=== PATIENT | female | born 1940 | race Caucasian/White ===

== ENCOUNTER → 2018-08-01 15:45 | Outpatient (CLI) | payer OTHER, SELFPAY ==
[2018-08-01 16:39] LABS: Add Manual Diff / Slide Review NO; Basophils Percent Auto 0.9 % (0-2); Hematocrit 38.7 % (36-46); Hemoglobin 13.5 g/dL (12.0-16.0); Lymphocytes Percent Auto 31.3 % (25-40); Mean Corpuscular HGB Conc 34.8 % (30-36); Mean Corpuscular Hemoglobin 31.5 PG (26-34); Mean Corpuscular Volume 90.7 fL (80-100); Monocytes Percent Auto 6.4 % (3-14); Neutrophils Absolute Auto 3500 /uL (1500-7000); Neutrophils Percent Auto 59.4 % (50-75); Platelet Count 215 X10^3/uL (150-400); Red Blood Cell Count 4.27 X10^6/uL (4.0-5.2); Red Cell Distribution Width 13.2 % (11.6-14.8)
[2018-08-01 17:02] LABS: Alanine Aminotransferase 41 IU/L (9-52); Albumin 4.5 g/dL (3.5-5.0); Alkaline Phosphatase 118 U/L (38-126); Aspartate Aminotransferase 29 IU/L (14-36); Bilirubin Total 0.8 mg/dL (0.2-1.3); Blood Urea Nitrogen 9 mg/dL (7-17); Calcium 10.3 mg/dL (8.4-10.2); Carbon Dioxide 28 mmol/L (22-32); Chloride 102 mmol/L (98-107); Cholesterol 227 mg/dL (140-199); Estimated Glomerular Filt Rate > 60.0 mL/min (>60); Globulin 2.3 g/dL (1.7-4.1); Glucose 118 mg/dL (80-110); HDL Cholesterol 49 mg/dL (40-60); HEMOLYSIS < 15 (0-50); LDL Cholesterol Calculated 133 mg/dL (<100); Potassium 3.7 mmol/L (3.4-5.1); Sodium 143 mmol/L (137-145); Total Protein 6.8 g/dL (6.3-8.2); Triglycerides 226 mg/dL (35-150)
[2018-08-01 17:30] LABS: Thyroid Stimulating Hormone 0.97 uIU/mL (0.47-4.68)
== END ==
PROVIDERS: Family Provider Family Medicine; PCP Family Medicine; Visit Provider Family Medicine
DX: E78.5 Hyperlipidemia, unspecified (principal); R94.5 Abnormal results of liver function studies; Z13.0 Encounter for screening for diseases of the blood and blood-forming organs and certain disorders involving the immune mechanism; Z13.29 Encounter for screening for other suspected endocrine disorder
CPT/HCPCS: 36415; 80053; 80061; 84443; 85025

== ENCOUNTER → 2018-09-02 16:24 | Outpatient (CLI) | payer OTHER, SELFPAY ==
--- NOTE | 2018-09-02 16:28 | DI.RAD.S_ITS ---
PROCEDURE: XR WRIST RT MIN 3V INDICATIONS: right arm and hand injury/pain TECHNIQUE: 4 views of the wrist were acquired. COMPARISON: [facility], , HAND 3V RIGHT, 06/28/2017, 14:16. FINDINGS: Bones: No fractures or dislocations. No suspicious bony lesions. Scaphoid view: No trauma of the scaphoid is seen. Moderate osteoarthritis at the base of the first metacarpal as it articulates against the trapezium and also between the scaphoid and trapezium. 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 Soft tissues: No suspicious soft tissue calcifications. IMPRESSION: Osteoarthritis and old trauma but no acute trauma found. Dictated by: Dwaine Levy M.D. on 09/02/2018 at 17:07 Approved by: Dwaine Levy M.D. on 09/02/2018 at 17:08
--- NOTE | 2018-09-02 16:28 | DI.RAD.S_ITS ---
PROCEDURE: XR FOREARM RT 2V INDICATIONS: right arm and hand injury/pain TECHNIQUE: 2 views of the forearm were acquired. COMPARISON: None. FINDINGS: Bones: No definite fractures or dislocations. No suspicious bony lesions. Soft tissues: No suspicious soft tissue calcifications or masses. IMPRESSION: Osteoarthritis is relatively prominent at the wrist, partially visualized. Trauma in the wrist area cannot be accurately assessed for given this finding. More proximally in the forearm appears free of trauma. Dictated by: Dwaine Levy M.D. on 09/02/2018 at 17:05 Approved by: Dwaine Levy M.D. on 09/02/2018 at 17:06
--- NOTE | 2018-09-02 16:28 | DI.RAD.S_ITS ---
PROCEDURE: XR ELBOW RT MIN 3V INDICATIONS: right arm and hand injury/pain TECHNIQUE: 3 views of the elbow were acquired. COMPARISON: None. FINDINGS: Bones: No fractures or dislocations. No suspicious bony lesions. Soft tissues: No elbow joint effusion. No suspicious soft tissue calcifications. IMPRESSION: Mild arthritic change, the triceps tendon insertion spurring, no acute trauma found, no effusion seen or suspected. Dictated by: Dwaine Levy M.D. on 09/02/2018 at 17:06 Approved by: Dwaine Levy M.D. on 09/02/2018 at 17:07
--- NOTE | 2018-09-02 16:28 | DI.RAD.S_ITS ---
PROCEDURE: XR HUMERUS RT 2V INDICATIONS: right arm and hand injury/pain TECHNIQUE: 2 views of the humerus were acquired. COMPARISON: None. FINDINGS: Bones: No fractures or dislocations. No suspicious bony lesions. Soft tissues: No suspicious soft tissue calcifications. IMPRESSION: No trauma found. Dictated by: Dwaine Levy M.D. on 09/02/2018 at 17:05 Approved by: Dwaine Levy M.D. on 09/02/2018 at 17:05
--- NOTE | 2018-09-02 16:28 | DI.RAD.S_ITS ---
PROCEDURE: XR SHOULDER RT MIN 2V INDICATIONS: right arm and hand injury/pain TECHNIQUE: 3 views of the shoulder were acquired. COMPARISON: [facility], , SHOULDER MINIMUM 2VIEW RIGHT, 06/28/2017, 14:16. FINDINGS: Bones: No fractures or dislocations. No suspicious bony lesions. Visualized ribs appear intact. Soft tissues: No suspicious soft tissue calcifications. IMPRESSION: Moderate osteoarthritis again noted at the glenohumeral and acromioclavicular joints. No trauma found. Dictated by: Dwaine Levy M.D. on 09/02/2018 at 17:04 Approved by: Dwaine Levy M.D. on 09/02/2018 at 17:05
--- NOTE | 2018-09-02 16:28 | DI.RAD.S_ITS ---
PROCEDURE: XR HAND RT MIN 3V INDICATIONS: right arm and hand injury/pain TECHNIQUE: 3 views of the hand(s) acquired. COMPARISON: [facility], , HAND 3V RIGHT, 06/28/2017, 14:16. FINDINGS: Bones: No fractures or dislocations. Carpal bones are normally aligned. No suspicious bony lesions. Soft tissues: No suspicious soft tissue calcifications. IMPRESSION: Moderate to moderately severe degenerative osteoarthritis again noted, previously documented also in June of 2017. No acute trauma found. Dictated by: Dwaine Levy M.D. on 09/02/2018 at 17:08 Approved by: Dwaine Levy M.D. on 09/02/2018 at 17:09
== END ==
PROVIDERS: Family Provider Family Medicine; PCP Family Medicine; Visit Provider Family Medicine
DX: S49.91XA Unspecified injury of right shoulder and upper arm, initial encounter (principal); S69.91XA Unspecified injury of right wrist, hand and finger(s), initial encounter; S59.911A Unspecified injury of right forearm, initial encounter; M19.011 Primary osteoarthritis, right shoulder; M19.031 Primary osteoarthritis, right wrist; M19.021 Primary osteoarthritis, right elbow; M19.041 Primary osteoarthritis, right hand
CPT/HCPCS: 73030; 73060; 73080; 73090; 73110; 73130

== ENCOUNTER → 2019-10-01 15:26 | Outpatient (CLI) | payer MEDICARE, SELFPAY ==
--- NOTE | 2019-10-01 15:33 | DI.RAD.S_ITS ---
PROCEDURE: XR CHEST 2V INDICATIONS: persistent cough TECHNIQUE: 2 views of the chest were acquired. COMPARISON: [facility], , CHEST 2 VIEW, 04/06/2014, 13:14. FINDINGS: Surgical changes and devices: None. Lungs and pleura: Lungs are clear. No pleural effusions or pneumothorax. Mediastinum: Mediastinal contours are normal. Heart size is normal. Bones and chest wall: No suspicious bony abnormalities. Soft tissues appear unremarkable. IMPRESSION: No acute disease Dictated by: Tex Titus M.D. on 10/01/2019 at 18:06 Approved by: Tex Titus M.D. on 10/01/2019 at 18:06
== END ==
PROVIDERS: Family Provider Family Medicine; PCP Family Medicine; Referring Provider Family Medicine; Visit Provider Family Medicine
DX: R05 Cough (principal)
CPT/HCPCS: 71046

== ENCOUNTER → 2020-07-22 16:10 | Outpatient (CLI) | payer MEDICARE, SELFPAY ==
--- NOTE | 2020-07-22 16:13 | DI.RAD.S_ITS ---
PROCEDURE: XR CERVICAL SPINE 2V OR 3V INDICATIONS: neck pain with left arm radiculopathy TECHNIQUE: 3 view(s) of the cervical spine were acquired. COMPARISON: None. FINDINGS: Bones: No fractures or dislocations to the T1 level. The lateral masses of C1 appear intact on the odontoid view. No suspicious bony lesions. Soft tissues: No prevertebral soft tissue swelling. IMPRESSION: No trauma found, no spinal or foraminal stenosis seen. Dictated by: Dwaine Levy M.D. on 07/22/2020 at 18:21 Approved by: Dwaine Levy M.D. on 07/22/2020 at 18:22
[2020-07-22 17:46] LABS: Alanine Aminotransferase 29 IU/L (<35); Albumin 4.5 g/dL (3.5-5.0); Albumin Globulin Ratio 1.7 (1.0-2.8); Alkaline Phosphatase 146 U/L (38-126); Aspartate Aminotransferase 27 IU/L (14-36); BUN Creatinine Ratio 20.6 (6-22); Bilirubin Total 0.7 mg/dL (0.2-1.3); Blood Urea Nitrogen 14 mg/dL (7-17); Calcium 10.5 mg/dL (8.4-10.2); Carbon Dioxide 35 mmol/L (22-32); Chloride 100 mmol/L (98-107); Cholesterol 164 mg/dL (140-199); Estimated Glomerular Filt Rate > 60.0 mL/min (>60); Globulin 2.6 g/dL (1.7-4.1); Glucose 149 mg/dL (80-110); HDL Cholesterol 50 mg/dL (40-60); HEMOLYSIS < 15 (0-50); LDL Cholesterol Calculated 54 mg/dL (<100); Potassium 4.5 mmol/L (3.4-5.1); Sodium 138 mmol/L (137-145); Total Protein 7.1 g/dL (6.3-8.2); Triglycerides 300 mg/dL (35-150)
== END ==
PROVIDERS: Family Provider Family Medicine; PCP Family Medicine; Referring Provider Family Medicine; Visit Provider Family Medicine
DX: M54.2 Cervicalgia (principal); E78.5 Hyperlipidemia, unspecified; R20.2 Paresthesia of skin; E83.52 Hypercalcemia
CPT/HCPCS: 36415; 72040; 80053; 80061

== ENCOUNTER → 2020-07-31 14:51 | Outpatient (CLI) | payer MEDICARE, SELFPAY ==
--- NOTE | 2020-07-31 14:52 | DI.MRI.S_ITS ---
PROCEDURE: MR CERVICAL SPINE WO CON INDICATIONS: cervicalgia with left side radiculopathy TECHNIQUE: Noncontrast sagittal T1 spin echo and T2 fast spin echo, sagittal STIR, foraminal oblique sagittal T2 fast spin echo, and axial gradient echo or T2 fast spin echo through the cervical spine. COMPARISON: Cervical spine three-view x-ray July 22, 2020 FINDINGS: Image quality: Excellent. Alignment and Curvature: There is trace C6-C7 and C7-T1 anterolisthesis. Bone Marrow: Marrow demonstrates normal overall signal. Spinal Cord: Visualized spinal cord has normal size and signal. No cerebellar tonsillar herniation. Paraspinous Soft Tissues: No paravertebral masses. Prevertebral soft tissues are normal in thickness. C2-C3: Loss of disc signal. No central stenosis. No neural foraminal narrowing. No neural compression. C3-C4: Loss of disc signal. No central stenosis. Moderate right and mild left facet hypertrophy. Mild bilateral neural foraminal narrowing. No neural compression. C4-C5: Loss of disc signal. No central stenosis. Mild bilateral facet hypertrophy. Mild bilateral uncovertebral joint hypertrophy. Severe right and moderate left neural foraminal narrowing with slight compression of the exiting right C5 nerve root. C5-C6: Loss of disc signal. No central stenosis. Mild bilateral facet hypertrophy. Mild bilateral neural foraminal narrowing. No neural compression. C6-C7: Loss of disc signal. Mild, diffuse disc bulge. Mild right and moderate left facet hypertrophy. Mild bilateral neural foraminal narrowing. No neural compression. C7-T1: Loss of disc signal. No central stenosis. No neural foraminal narrowing. No neural compression. IMPRESSION: 1. Multilevel degenerative disease. 2. Multilevel facet arthropathy. 3. No significant central canal narrowing. 4. Severe right C4-C5 neural foraminal narrowing compression of the exiting right C5 nerve. Please correlate with clinical data. Dictated by: Kristen Acuna MD, PhD on 08/02/2020 at 13:51 Approved by: Kristen Acuna MD, PhD on 08/02/2020 at 14:09
== END ==
PROVIDERS: Family Provider Family Medicine; PCP Family Medicine; Referring Provider Family Medicine; Visit Provider Family Medicine
DX: M50.123 Cervical disc disorder at C6-C7 level with radiculopathy (principal); M48.02 Spinal stenosis, cervical region; M47.22 Other spondylosis with radiculopathy, cervical region
CPT/HCPCS: 72141

== ENCOUNTER → 2021-04-04 15:25 | Outpatient (CLI) | payer MEDICARE, SELFPAY ==
[2021-04-04 16:27] LABS: Add Manual Diff / Slide Review NO; Basophils Absolute Auto 100 /uL (0-100); Eosinophils Absolute Auto 200 /uL (0-450); Eosinophils Percent Auto 2.7 % (2-4); Hemoglobin 13.8 g/dL (12.0-16.0); Lymphocytes Absolute Auto 2100 /uL (1100-4500); Lymphocytes Percent Auto 34.5 % (25-40); Mean Corpuscular HGB Conc 34.5 % (30-36); Mean Corpuscular Hemoglobin 31.1 PG (26-34); Mean Corpuscular Volume 90.3 fL (80-100); Monocytes Absolute Auto 300 /uL (0-900); Monocytes Percent Auto 5.7 % (3-14); Neutrophils Absolute Auto 3500 /uL (1500-7000); Neutrophils Percent Auto 56.1 % (50-75); Platelet Count 187 X10^3/uL (150-400); Red Blood Cell Count 4.42 X10^6/uL (4.0-5.2); White Blood Cell Count 6.2 X10^3/uL (4.5-11.0)
[2021-04-04 16:57] LABS: Hemoglobin A1C% w Est Avg Glu 7.9 % (4.0-6.0)
[2021-04-04 16:59] LABS: Alanine Aminotransferase 24 IU/L (<35); Albumin 4.3 g/dL (3.5-5.0); Albumin Globulin Ratio 1.7 (1.0-2.8); Alkaline Phosphatase 112 U/L (38-126); Aspartate Aminotransferase 25 IU/L (14-36); BUN Creatinine Ratio 35.4 (6-22); Bilirubin Total 0.5 mg/dL (0.2-1.3); Blood Urea Nitrogen 17 mg/dL (7-17); Calcium 10.4 mg/dL (8.4-10.2); Carbon Dioxide 28 mmol/L (22-32); Chloride 106 mmol/L (98-107); Cholesterol 157 mg/dL (140-199); Estimated Glomerular Filt Rate > 60.0 mL/min (>60); Gamma Glutamyl Transpeptidase 59 U/L (12-43); Globulin 2.5 g/dL (1.7-4.1); Glucose 175 mg/dL (80-110); HDL Cholesterol 40 mg/dL (40-60); HEMOLYSIS < 15 (0-50); LDL Cholesterol Calculated 51 mg/dL (<100); Potassium 3.5 mmol/L (3.4-5.1); Sodium 140 mmol/L (137-145); Total Protein 6.8 g/dL (6.3-8.2); Triglycerides 331 mg/dL (35-150)
[2021-04-05 10:26] LABS: Calcium 10.1 mg/dL (8.7-10.3); Parathyroid Hormone, Intact 55 pg/mL (15-65)
== END ==
PROVIDERS: Family Provider Family Medicine; PCP Family Medicine; Referring Provider Family Medicine; Visit Provider Family Medicine
DX: E78.5 Hyperlipidemia, unspecified (principal); E83.52 Hypercalcemia; R73.9 Hyperglycemia, unspecified; F31.9 Bipolar disorder, unspecified; F32.9 Major depressive disorder, single episode, unspecified; F41.9 Anxiety disorder, unspecified; R74.8 Abnormal levels of other serum enzymes; G89.4 Chronic pain syndrome
CPT/HCPCS: 36415; 80053; 80061; 82310; 82977; 83036; 83970; 85025